=== PATIENT | male | born 1995 | race Caucasian/White ===

== ENCOUNTER 2019-03-29 13:50 | Emergency (ER) | payer BC, MEDICAID, OTHER ==
[~2019-03-29] VITALS: Ht 170.2 cm; Wt 66.0 kg
[~2019-03-29 13:50] MED LIST: IBUP800T48 PO
[2019-03-29 13:57] VITALS: BP 144/79; PULSE 68; RESP 20; Ht 170.2 cm; Wt 66.0 kg
[2019-03-29] MEDS ORDERED: IBUPROFEN 800 MG TAB PO ONE (14:30)
== END 2019-03-29 15:29 | disposition home or self-care (01) ==
LOC: FTE 13:50
DX: S43.101A Unspecified dislocation of right acromioclavicular joint, initial encounter (principal); X58.XXXA Exposure to other specified factors, initial encounter; Y92.9 Unspecified place or not applicable